=== PATIENT | female | born 1975 | race Caucasian/White ===

== ENCOUNTER 2021-02-12 22:26 | Emergency (ER) | payer MEDICARE ==
[~2021-02-12 22:26] MED LIST: 8 HOUR650 MG PO; ADVIL200 M1 PO
[2021-02-12] MEDS ORDERED: DICLOFENAC SODI75 MG PO (23:53)
== END 2021-02-13 00:18 | disposition home or self-care (01) ==
LOC: FER 22:26
DX: M54.5 Low back pain (principal); R20.8 Other disturbances of skin sensation; F17.210 Nicotine dependence, cigarettes, uncomplicated; Z88.5 Allergy status to narcotic agent; Z98.1 Arthrodesis status
CPT/HCPCS: 72100; 96372; J1885; J3360